=== PATIENT | male | born 1975 | race Caucasian/White ===

== ENCOUNTER 2024-12-10 21:49 | Observation (INO) | payer OTHER ==
--- NOTE | 2024-12-10 22:42 | ERPHSYRPT ---
- History of Present Illness Time Seen by Provider: 12/10/24 22:39 Source: patient Exam Limitations: no limitations Patient Subjective Stated Complaint: pt reports a 6 week history of ER and PCP visits regarding initial hypertension and nausea, low back pain, dizziness upon standing/position changes, states that he was started on olmesartan 11/18/24 to manage his blood pressure. pt reports for the last 2 days he has been lightheaded and nauseated. pt states he is scheduled for and EDG and colonoscopy and is supposed to be seeing a chaperone but is awaiting appointment information from his primary. Triage Nursing Assessment: pt is aox3, pupils perrl, pt ambulatory to treatment area, afebrile, resps easy and non labored, radial pulses strong and equal, cap refill < 3 seconds, pt skin pink warm dry. Physician History: 49-year-old male history of hypertension presents to our ED for evaluation of a 6-week history of hypertension nausea low back pain intermittent dizziness with position and blurred vision. For the last 2 days he has been experiencing lightheadedness and nausea. Patient is currently scheduled for an EGD and colonoscopy. No chest pain or shortness of breath. Patient voices no other complaints or concerns at this time. Portions of this note were created with voice recognition technology. There may be grammatical, spelling, punctuation or sound alike errors Timing/Duration: today Severity: moderate Modifying Factors: Improves With: nothing Associated Symptoms: denies symptoms Allergies/Adverse Reactions: cefaclor [From Ceclor] Allergy (Verified 12/10/24 22:14) Rash Penicillins Allergy (Verified 12/10/24 22:14) Rash Home Medications: ALPRAZolam 0.25 MG [xanAX 0.25 MG] 0.5 mg PO BIDPRN PRN 12/10/24 [History] Desvenlafaxine Succinate [Desvenlafaxine Succinate ER] 100 mg PO DAILY 12/10/24 [History] Olmesartan Medoxomil 5 mg PO DAILY 12/10/24 [History] Pantoprazole 20 mg [Protonix 20MG Tablet] 40 mg PO DAILY 12/10/24 [History] Sildenafil Citrate 25 mg PO DAILY 12/10/24 [History] Trazodone HCl 50 mg [Desyrel 50 mg] 150 mg PO DAILY 12/10/24 [History] Hx Tetanus, Diphtheria Vaccination/Date Given: Yes Hx Influenza Vaccination/Date Given: No Hx Pneumococcal Vaccination/Date Given: No Immunizations Up to Date: Yes Travel Risk - International Travel Have you traveled outside of the country in past 3 weeks: No - Emerging Infectious Disease Are you exhibiting symptoms associated with any current EIDs: No - Review of Systems All Other Systems: Reviewed and Negative - Past Medical History Pertinent Past Medical History: Yes Cardiac History: Hypertension Respiratory History: Asthma GI Medical History: GERD Psycho-Social History: Anxiety, Depression - Past Surgical History Past Surgical History: Yes Musculoskeletal: Orthopedic Surgery - Social History Smoking Status: Never smoker Exposure to second hand smoke: No Drug Use: none - Social Determinants of Health Will the patient participate in the screening: Yes Do you worry about a steady place to live?: No Do you have any problems with any of the following?: No known problems In the past 12 months,have you had to go without utilities?: No Transportation Issues: No Has anyone in your support network made you feel unsafe?: No Have you or anyone in your house had to go w/o enough food: No - Nursing Vital Signs Nursing Vital Signs: Initial Vital Signs Temperature 98.7 F 12/10/24 21:54 Pulse Rate 88 12/10/24 21:54 Respiratory Rate 20 12/10/24 21:54 Blood Pressure 119/85 12/10/24 21:54 O2 Sat by Pulse Oximetry 97 12/10/24 21:54 Pain Scale Pain Intensity 7 - Physical Exam General Appearance: no apparent distress, alert Eye Exam: PERRL/EOMI, eyes nml inspection Ears, Nose, Throat Exam: normal ENT inspection, TMs normal, pharynx normal, moist mucous membranes Neck Exam: normal inspection, non-tender, supple, full range of motion Respiratory Exam: normal breath sounds, lungs clear, No respiratory distress Cardiovascular Exam: regular rate/rhythm, normal heart sounds, normal peripheral pulses Gastrointestinal/Abdomen Exam: soft, normal bowel sounds, No tenderness, No mass Back Exam: normal inspection, normal range of motion, No CVA tenderness, No vertebral tenderness Extremity Exam: normal inspection, normal range of motion, pelvis stable Neurologic Exam: alert, oriented x 3, cooperative, normal mood/affect, nml cerebellar function, nml station & gait, sensation nml, No motor deficits Skin Exam: normal color, warm, dry, No rash Lymphatic Exam: No adenopathy SpO2 Interpretation: normal SpO2: 97 O2 Delivery: Room Air - Course Nursing assessment & vital signs reviewed: Yes EKG Interpreted by Me: RATE (73), Sinus Rhythm, Right Kennedy Deviation, NORMAL INTERVALS, NORMAL QRS - CT Exams Head CT Interpretation: Tele-radiologist Report (No acute intracranial abnormality observed) Ordered Tests: Active Orders 24 hr Category Date Time Status Doctor Of Pharmacy STAT Care 12/10/24 22:37 Active EKG-ER Only STAT Care 12/10/24 22:37 Active IV Insertion STAT Care 12/10/24 22:37 Active Orthostatic Vital Signs STAT Care 12/10/24 23:44 Active Pulse Oximetry (ED) STAT Care 12/10/24 22:37 Active HEAD WITHOUT CONTRAST [CT] Stat Exams 12/10/24 22:46 Completed CBC W DIFF Stat Lab 12/10/24 22:57 Completed CMP Stat Lab 12/10/24 22:57 Completed TROPONIN Q4H Lab 12/10/24 22:57 Completed TROPONIN Q4H Lab 12/11/24 02:45 Ordered TROPONIN Q4H Lab 12/11/24 06:45 Ordered UA W/RFX UR CULTURE Stat Lab 12/10/24 22:41 Completed Medication Summary Generic Name Dose Route Start Last Admin Trade Name Freq PRN Reason Stop Dose Admin Lactated Ringer's 1,000 mls @ 1,000 mls/hr 12/11/24 00:33 12/11/24 00:34 Lactated Ringers IV 12/11/24 01:32 1,000 mls/hr .Q1H STA Administration Discontinued Medications Generic Name Dose Route Start Last Admin Trade Name Freq PRN Reason Stop Dose Admin Sodium Chloride 1,000 mls @ 999 mls/hr 12/10/24 22:37 12/10/24 23:51 Sodium Chloride 0.9% 1000 Ml IV 12/10/24 23:37 Infused .Q1H1M STA Infusion Sodium Chloride Confirm 12/10/24 22:51 Sodium Chloride 0.9% 1000 Ml Administered 12/10/24 22:52 Dose 1,000 mls @ ud .ROUTE .STK-MED ONE Lactated Ringer's Confirm 12/11/24 00:33 Lactated Ringers Administered 12/11/24 00:34 Dose 1,000 mls @ ud IV .STK-MED ONE Ketorolac Tromethamine 30 mg 12/11/24 01:10 12/11/24 01:19 Ketorolac Tromethamine 30 Mg/Ml Inj IV 12/11/24 01:11 30 mg STAT ONE Administration Ketorolac Tromethamine Confirm 12/11/24 01:12 Ketorolac Tromethamine 30 Mg/Ml Inj Administered 12/11/24 01:13 Dose 30 mg .ROUTE .STK-MED ONE Prochlorperazine Edisylate 10 mg 12/11/24 01:09 12/11/24 01:18 Prochlorperazine Edisylate 10 Mg/2 Ml Vial IV 12/11/24 01:10 10 mg STAT ONE Administration Prochlorperazine Edisylate Confirm 12/11/24 01:12 Prochlorperazine Edisylate 10 Mg/2 Ml Vial Administered 12/11/24 01:13 Dose 10 mg .ROUTE .K-MED ONE Lab/Rad Data: Laboratory Result Diagrams 12/10/24 22:57 12/10/24 22:57 Laboratory Results 12/10/24 12/10/24 12/10/24 Range/Units 22:57 22:57 22:57 WBC 9.0 (4.23-9.07) x10^3/uL RBC 3.72 L (4.63-6.08) x10^6/uL Hgb 12.2 L (13.7-17.5) g/dL Hct 35.5 L (40.1-51.0) % MCV 95.4 H (79.0-92.2) fL MCH 32.8 H (25.7-32.2) pg MCHC 34.4 (32.3-36.5) g/dL RDW 13.1 (11.6-14.4) % Plt Count 274 (163-337) x10^3/uL MPV 9.4 (9.4-12.4) fL Gran % 52.7 (34.0-67.9) % Immature Gran % (Auto) 0.8 H (0.001-0.429) % Nucleat RBC Rel Count 0.2 (0.00-0.2) % Eos # (Auto) 0.13 (0.04-0.54) x10^3/uL Immature Gran # (Auto) 0.07 H (0.001-0.031) x10^3u/L Absolute Lymphs (auto) 3.25 (1.32-3.57) x10^3/uL Absolute Monos (auto) 0.74 (0.30-0.82) x10^3/uL Absolute Nucleated RBC 0.02 H (0.00-0.012) x10^3u/L Lymphocytes % 36.1 (21.8-53.1) % Monocytes % 8.2 (5.3-12.2) % Eosinophils % 1.4 (0.8-7.0) % Basophils % 0.8 (0.2-1.2) % Absolute Granulocytes 4.75 (1.78-5.38) x10^3/uL Basophils # 0.07 (0.01-0.08) x10^3/uL Sodium 136 (135-145) mmol/L Potassium 3.8 (3.5-5.1) mmol/L Chloride 104 (98-107) mmol/L Carbon Dioxide 21 L (22-30) mmol/L Anion Gap 14.5 (5-15) MEQ/L BUN 10 (9-20) mg/dL Creatinine 1.64 H (0.66-1.25) mg/dL Estimated GFR 51.3 ML/MIN Glucose 93 (74-106) mg/dL Calcium 8.6 (8.4-10.2) mg/dL Total Bilirubin 0.20 (0.2-1.3) mg/dL AST 50 (17-59) U/L ALT 55 H (0-50) U/L Alkaline Phosphatase 47 (38-126) U/L Troponin I < 0.012 (0.000-0.033) ng/mL Serum Total Protein 6.6 (6.3-8.2) g/dL Albumin 4.0 (3.5-5.0) g/dL Urine Color (Yellow) Urine Appearance (Clear) Urine pH (4.6-8.0) Ur Specific [place] (1.005-1.030) Urine Protein (Negative) Urine Glucose (UA) (Negative) mg/dL Urine Ketones (Negative) Urine Blood (Negative) Urine Nitrite (Negative) Urine Bilirubin (Negative) Urine Urobilinogen (0.2) mg/dL Ur Leukocyte Esterase (Negative) U Hyaline Cast (Auto) (0-2) /LPF Urine Microscopic RBC (0-5) /HPF Urine Microscopic WBC (0-5) /HPF Ur Epithelial Cells (None Seen) /HPF Urine Bacteria (None Seen) /HPF Urine Culture Reflexed (NO) 12/10/24 Range/Units 22:41 WBC (4.23-9.07) x10^3/uL RBC (4.63-6.08) x10^6/uL Hgb (13.7-17.5) g/dL Hct (40.1-51.0) % MCV (79.0-92.2) fL MCH (25.7-32.2) pg MCHC (32.3-36.5) g/dL RDW (11.6-14.4) % Plt Count (163-337) x10^3/uL MPV (9.4-12.4) fL Gran % (34.0-67.9) % Immature Gran % (Auto) (0.001-0.429) % Nucleat RBC Rel Count (0.00-0.2) % Eos # (Auto) (0.04-0.54) x10^3/uL Immature Gran # (Auto) (0.001-0.031) x10^3u/L Absolute Lymphs (auto) (1.32-3.57) x10^3/uL Absolute Monos (auto) (0.30-0.82) x10^3/uL Absolute Nucleated RBC (0.00-0.012) x10^3u/L Lymphocytes % (21.8-53.1) % Monocytes % (5.3-12.2) % Eosinophils % (0.8-7.0) % Basophils % (0.2-1.2) % Absolute Granulocytes (1.78-5.38) x10^3/uL Basophils # (0.01-0.08) x10^3/uL Sodium (135-145) mmol/L Potassium (3.5-5.1) mmol/L Chloride (98-107) mmol/L Carbon Dioxide (22-30) mmol/L Anion Gap (5-15) MEQ/L BUN (9-20) mg/dL Creatinine (0.66-1.25) mg/dL Estimated GFR ML/MIN Glucose (74-106) mg/dL Calcium (8.4-10.2) mg/dL Total Bilirubin (0.2-1.3) mg/dL AST (17-59) U/L ALT (0-50) U/L Alkaline Phosphatase (38-126) U/L Troponin I (0.000-0.033) ng/mL Serum Total Protein (6.3-8.2) g/dL Albumin (3.5-5.0) g/dL Urine Color Yellow (Yellow) Urine Appearance Clear (Clear) Urine pH 5.0 (4.6-8.0) Ur Specific [place] <=1.005 (1.005-1.030) Urine Protein Negative (Negative) Urine Glucose (UA) Negative (Negative) mg/dL Urine Ketones Negative (Negative) Urine Blood Negative (Negative) Urine Nitrite Negative (Negative) Urine Bilirubin Negative (Negative) Urine Urobilinogen 0.2 (0.2) mg/dL Ur Leukocyte Esterase Negative (Negative) U Hyaline Cast (Auto) NONE SEEN (0-2) /LPF Urine Microscopic RBC 0-2 (0-5) /HPF Urine Microscopic WBC 0-2 (0-5) /HPF Ur Epithelial Cells None Seen (None Seen) /HPF Urine Bacteria None Seen (None Seen) /HPF Urine Culture Reflexed NO (NO) - Progress Progress: improved Progress Note: I reviewed the CT abdomen pelvis performed at [facility] on 11/17/2024. No acute intra-abdominal or pelvic process observed. I also reviewed the CT lumbar spine performed at [facility] also on 11/17/2024. Mild spondylosis of the lumbar spine observed. No acute pathology observed. 12/11/24 00:35 History obtained from patient and significant other who are at the bedside. Differential diagnoses include cardiac dysrhythmia, orthostatic, vasovagal 49-year-old male history of hypertension presents to our ED for evaluation of a 6-week history of hypertension nausea low back pain intermittent dizziness with position. For the last 2 days he has been experiencing lightheadedness and nausea 12/11/24 00:38 I consulted with neurology at approximately 12:45 AM. They advised hospitalization for a near syncopal workup observation with cardiac dysrhythmia and MRI brain with and without contrast. Plan of care discussed with patient. He agrees to admission at [facility] for further evaluation and treatment. Complexity of problems addressed is moderate acute complicated. No critical care time. Complexity of data reviewed and analyzed as extensive. Test ordered test reviewed results analyzed and correlated clinically with history and physical exam. Risk of complication and or risk of morbidity/mortality of patient management is high. Patient requires hospitalization for further evaluation and treatment. Vital stable. Time spent to admit patient is approximately 20 minutes. Plan of care established for shared decision making. No social determinants of health present to impede follow-up. Portions of this note were created with voice recognition technology. There may be grammatical, spelling, punctuation or sound alike errors 12/11/24 00:52 Case discussed with hospitalist Dr. Cali admission to observation at proximately 1:20 AM 12/11/24 01:20 Patient complained of a headache. He received Compazine and Toradol 12/11/24 01:24 Counseled pt/family regarding: lab results, diagnosis, rad results - Departure Departure Disposition: Observation Clinical Impression: Acute renal injury, Near syncope, Blurred vision, Headache Condition: Stable Critical Care Time: No Referrals: [facility] OGLES[facility] [NON-STAFF PHY W/O PRIVILEGES, UNKNOWN] - Follow up/PCP as directed
[2024-12-10 23:00] LABS: Glucose, Urine Negative (Negative); Protein,Urine Dip Negative (Negative); RBC 0-2 /HPF (0-5); WBC 0-2 /HPF (0-5)
[2024-12-10 23:01] LABS: BASOPHIL % 0.8 % (0.2-1.2); Basophil (Absolute #) 0.07 x10^3/uL (0.01-0.08); Eosinophil (Absolute #) 0.13 x10^3/uL (0.04-0.54); Hematocrit 35.5 % (40.1-51.0); Hemoglobin 12.2 g/dL (13.7-17.5); IMMATURE GRAN # 0.07 x10^3u/L (0.001-0.031); IMMATURE GRAN % 0.8 % (0.001-0.429); Lymphocyte (Absolute #) 3.25 x10^3/uL (1.32-3.57); Mean Corpuscular Hemoglobin 32.8 pg (25.7-32.2); Mean Corpuscular Hgb Concent. 34.4 g/dL (32.3-36.5); Monocyte (Absolute #) 0.74 x10^3/uL (0.30-0.82); NUCLEATED RBC # 0.02 x10^3u/L (0.00-0.012); NUCLEATED RBC % 0.2 % (0.00-0.2); Platelet Count 274 x10^3/uL (163-337); Red Blood Count 3.72 x10^6/uL (4.63-6.08); White Blood Count 9.0 x10^3/uL (4.23-9.07)
[2024-12-10 23:16] LABS: Calcium 8.6 mg/dL (8.4-10.2); Carbon Dioxide 21.0 mmol/L (22-30); Creatinine 1 1.64 mg/dL (0.66-1.25); EST GLOMERULAR FILTRATION RATE 51.3 ML/MIN; Glucose 93.0 mg/dL (74-106); Potassium 3.8 mmol/L (3.5-5.1); SGOT/AST 50.0 U/L (17-59); SGPT/ALT 55.0 U/L (0-50); Total Protein 6.6 g/dL (6.3-8.2)
--- NOTE | 2024-12-11 00:05 | XRAY ---
CLINICAL HISTORY: Lightheadedness COMPARISON: None. TECHNIQUE: Axial non-contrast CT scan of the brain was performed from the skull base to the high parietal region with multiplanar reconstructions. One of the following dose reduction techniques was utilized for this exam: automated exposure control, adjustment of the mA and/or kV according to patient size, or use of iterative reconstruction. FINDINGS: Brain Parenchyma: Normal attenuation of the cerebral hemispheres, cerebellum, and brainstem. There is no evidence of acute infarct, hemorrhage, or mass effect. No abnormal areas of hypoattenuation or hyperattenuation are identified. Ventricular System: The ventricles are normal in size and configuration. There is no evidence of hydrocephalus or ventricular enlargement. Subarachnoid Spaces: Normal sulci and cisterns are seen. There is no evidence of subarachnoid hemorrhage or extra-axial fluid collections. Cerebellum and Brainstem: No masses, lesions, or areas of abnormal density are present. Orbits: Normal appearance of the globes, optic nerves, and extraocular muscles. There is no evidence of orbital masses or abnormal density. Sinuses: The paranasal sinuses are clear. No evidence of sinusitis or mucosal thickening is seen. Mastoid Air Cells: The mastoid air cells are clear. No evidence of mastoiditis is present. Skull: Normal skull morphology is observed. IMPRESSION: No acute intracranial abnormality is identified. Electronically Signed by: Anthony Cheek MD. (12/11/2024 00:04:08 EDT)
[2024-12-11] MEDS ORDERED: Lactated Ringers 1,000 ML IV ONE (00:33)
[2024-12-11] MEDS: Lactated Ringers 1,000 ML IV STA (00:34)
--- NOTE | 2024-12-11 00:50 | PCM.CONS ---
History of Present Illness - Neuro Consultation ED Arrival Date & Time: 12/10/24 21:49 Providers: Attending Provider: ED Provider: RUTH ANN NOVA Consulting Provider: LIDYA PEREZ MD cc:: The requesting physician will be sent a copy of the consult. - History of Present Illness HPI: Physician Signature This document was electronically signed by: Lidya Perez MD 12/11/2024 12:47 AM Consult Cover Page [facility] - Teleneurology Consult Note Call Back Number: [phone] Date and Time of Report: 12/11/2024 12:47 AM ET Consult Information Client Facility: [facility] Facility Consult ID: [id number] Facility Time Zone: ET Date and Time of Request: 12-10-2024 11:47 PM ET Requesting Clinician: DR. RUTH ANN NOVA Patient Name: MELISSA SWENSON Date of : 1975 Teleneurology Commercial Account Officer: Lidya Perez MD Miscellaneous Patient identity was confirmed at the beginning of the consult with the patient/family/staff using two personal identifiers: Patient name and This visit was performed using real-time audio and video connection between my location and the patient's location with the assistance of a surrogate at the patient's location. Verbal consent was obtained from the patient/family to perform this visit using synchronous telemedicine technology. Any questions regarding the telemedicine interaction were answered. If written or oral consent could not be obtained due to the patient's condition, consent was assumed given the emergent nature of the consultation. I have obtained verbal consent from patient/surrogate for two-way audio/visual encounter: Yes Reason for Consult Reason for Consult: Other Emergency Assessment and Recommendations Case discussed with: Dr. Nova Assessment: Mr. Swenson is a 49 yo M w/pmhx of HTN, asthma, anxiety, depression, CKD who presents for ongoing light headedness, recurrent episodes of palpitations, labile BP, SOB and blurry vision. He endorses that his light headedness has been ongoing since starting benicar a few weeks ago and he experiences blurry vision at times where he feels like he is going to pass out with no neuro deficits in between. He also endorses gradual ongoing headache that has been occurring over the last few weeks. His symptoms are most concerning for pre syncope with c/f cardiac etiology given recurrent episodes of labile BP, palpitations, SOB. Recommendations: Recommend presyncope/syncope evaluation including a cardiac evaluation for any possible underlying arrhythmias, etc. Obtain orthostatics MRIB w/w/o contrast Recommend comprehensive metabolic and infectious workup TTE w/bubble Rest of care per primary team Diagnosis: light headedness ICD-10 Code ICD-10 Code (Primary): R42 : Dizziness and giddiness ICD-10 Code: R11.2 : Nausea with vomiting, unspecified ICD-10 Code: R26.89 : Other abnormalities of gait and mobility Clinical Evaluation Chief Complaint: dizziness Patient Location and Admission Status: ED- Patient is not admitted Family Members and Medical Staff Present: RN Neurologist evaluation date: 12/11/2024 Neurologist call time: 1204 Neurologist on-cart time: 1207 Neurologist evaluation with patient time: 1207 Mr. Swenson is a 49 yo M w/pmhx of HTN, asthma, anxiety, depression, CKD who presents for recurrent light headedness, nausea with emesis for the past few weeks. He also gets very rapid heart rate with elevated BP. He reports that for the past 2 days, he was getting very light headed and he noticed that his BP was 74/52. He describes that if he does not hold onto the wall, he will fall. He denies any room spinning sensation. He reports having some blurry vision that only occurs when he feels like he is going to pass out. He reports that he will have many episodes of feeling like his heart is racing especially during these episodes with associated SOB. He reports that he was recently diagnosed with hypertension and he was started on benicar about 3 weeks ago. He reports that he has been taking his antiHTN medication up until today. He denies any speech changes, facial droop, unilateral weakness. He reports that he has a headache that is located bitemporally and has had a headache on and off for the last few weeks. He rates it 7/10 currently. He denies any photophobia or phonophobia. He reports that he has gone to about 5 EDs in the last 6 weeks and he was not satisfied with what he was told as no one gave him any explanation of what was going on. He was referred to cardiology but he was not able to get an appointment. He is scheduled for a colonoscope and endoscopy for his ongoing nausea with OP GI. he reports he has chronic neck pain but its not unusual for him or different from his baseline. he reports that he has been having really bad lower back pain that is located over his kidneys that has been going for about 6 weeks. no loss of bowel or bladder, sensory deficits. 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 He reports that he has been suffering from night sweats that have been ongoing for the past few weeks. He did have a CT L-spine on 11/17 at [facility] with abdominal imaging with no acute findings as per Dr. Nova. As per Dr. Nova, his EKG is normal with NSR, trop neg. Medical History Other Medical History: as noted in HPI Other Past Procedures: c3-c4 fusion Social History Alcohol Use: None Illicit Drug Use: None Tobacco Use: Current Other Social History : vapes Family History Pertinent Family History: Not Relevant to Current Presentation Allergies Allergies: Penicillin Medications Anti-Coagulants: None Anti-Platelets: None Other Medications: benicar prystiq trazadone xanax 1 mg bid Vital Signs Temperature: Afebrile Blood Pressure (mmHg): 104/55 Heart Rate (bpm): 72 Respiration Rate (/min): 19 O2 Sat (%): 98 POC Glucose(mg/dL): 100 Date and Time: 12/11/2024 12:19:14 AM ET Review of Systems Review of Systems: Constitutional: Denies fevers, chills, weight loss ENT: Denies tinnitus Ophthalmology: +blurred vision Respiratory: Denies SOB, cough Cardiovascular: Denies chest pains, palpitations GI:+vomiting : Denies hematuria Hematology: Denies excessive bleeding Musculoskeletal: Denies back pain, neck pain, joint pain Neurology: +headache Mental Health: Denies anxiety Dermatology: Denies rash NIH Stroke Scale NIH Stroke Scale Score: 0 1. Level of Consciousness: 0 : alert; keenly responsive. 1a. LOC Questions: 0 : Answers both questions correctly. 1b. LOC Commands: 0 : Performs both tasks correctly. 2. Best Gaze: 0 : Normal. 3. Visual: 0 : No visual loss. 4. Facial Palsy: 0 : Normal symmetrical movements. 5a. Motor Left Arm: 0 : No drift; limb holds 90 (or 45) degrees for full 10 seconds. 5b. Motor Right Arm : 0 : No drift; limb holds 90 (or 45) degrees for full 10 seconds. 6a. Motor Left Le : No drift; leg holds 30-degree position for full 5 seconds. 6b. Motor Right Le : No drift; leg holds 30-degree position for full 5 seconds. 7. Limb Ataxia: 0 : Absent. 8. Sensory: 0 : Normal; no sensory loss. 9. Best Language: 0 : No aphasia; normal. 10. Dysarthria: 0 : Normal. 11. Extinction and inattention (formerly Neglect) : 0 : No abnormality. NIH Stroke Scale Entry Time: 12/11/2024 12:34:00 AM ET Exam Exam: Gen: Well developed, well nourished. No acute distress. MS: Awake and oriented x3. Alert. Fund of knowledge, memory, and language at baseline. CV: Regular rate. No edema. recovery room rn: Pupils reactive and equal., EOMI. Visual alvarenga are full. +blink. Unable to visualize fundi through telemedicine. Sensation intact. Face is symmetric. Hearing intact to voice. Trapezii strong. Tongue midline. Motor: Antigravity in all 4 extremities. Normal bulk. Sens: Intact to light touch in all 4 extremities. MSR: Unable to assess through telemedicine, no clonus noted. Mvmt: No tremors noted. FTN intact or HTS Gait: Deferred. Clinician assisting with exam: RN Labs and Imaging I reviewed labs: Yes I reviewed diagnostic reports such as radiological imaging, echocardiogram, and EEG reports: Yes I reviewed diagnostics such as radiological images and electroencephalograms: Yes Labs and Imaging Comments: hgb 12.2 , plt 274, Na 136, Cr 1.64 CTH - no acute abnormalities Attestation Interaction Mode: Video & Phone Time of Phone Call : 12-11-2024 12:38 AM ET Time of Video Call : 12-11-2024 12:08 AM ET [facility] Timer Summary ED Arrival Date and Time: 12-10-2024 09:49 PM ET Date and Time of Request: 12-10-2024 11:47 PM ET Review of Systems - Review of Systems Review of Systems (Narrative): Pertinent positive and negative findings as per HPI. All other systems negative. - Past Medical History Past Medical History: Yes Cardiac History: Hypertension Respiratory History: Asthma GI Medical History: GERD Pyscho-Social History: Anxiety, Depression - Past Surgical History Past Surgical History: Yes Musculskeletal Surgical Hx: Orthopedic Surgery Other Surgical History: C3-C4 fusion - Social History Smoking Status: Never smoker Exposure to second hand smoke: No Alcohol: None Drug Use: none - Social Determinants of Health Will the patient participate in the screening: Yes Do you worry about a steady place to live?: No Do you have any problems with any of the following?: No known problems In the past 12 months,have you had to go without utilities?: No Have you or anyone in your house had to go without enough: No Transportation Issues: No Has anyone in your support network made you feel unsafe?: No Physical Exam - Vital Signs Vital Signs: Vital Signs - 24 hr 12/10/24 12/10/24 12/10/24 21:54 22:00 22:30 Temperature 98.7 F Pulse Rate 88 76 Respiratory 20 18 Rate Blood Pressure 99/70 106/64 Blood Pressure 119/85 [Left Arm] O2 Sat by Pulse 97 97 98 Oximetry 12/10/24 12/10/24 12/10/24 22:50 23:00 23:20 Temperature Pulse Rate 80 76 Respiratory 13 18 Rate Blood Pressure 86/57 101/58 Blood Pressure [Left Arm] O2 Sat by Pulse 97 96 99 Oximetry 12/10/24 12/10/24 12/10/24 23:30 23:39 23:40 Temperature Pulse Rate 78 83 94 H Respiratory 12 23 19 Rate Blood Pressure 91/56 97/61 82/67 Blood Pressure [Left Arm] O2 Sat by Pulse 96 97 98 Oximetry 12/10/24 12/11/24 12/11/24 23:41 00:00 00:38 Temperature Pulse Rate 73 76 Respiratory 18 22 Rate Blood Pressure 97/70 104/55 Blood Pressure [Left Arm] O2 Sat by Pulse 97 97 97 Oximetry Results - Labs Lab/Micro Results: Lab Results-Last 24 Hours 12/10/24 12/10/24 12/10/24 Range/Units 22:41 22:57 22:57 WBC 9.0 (4.23-9.07) x10^3/uL RBC 3.72 L (4.63-6.08) x10^6/uL Hgb 12.2 L (13.7-17.5) g/dL Hct 35.5 L (40.1-51.0) % MCV 95.4 H (79.0-92.2) fL MCH 32.8 H (25.7-32.2) pg MCHC 34.4 (32.3-36.5) g/dL RDW 13.1 (11.6-14.4) % Plt Count 274 (163-337) x10^3/uL MPV 9.4 (9.4-12.4) fL Gran % 52.7 (34.0-67.9) % Immature Gran % (Auto) 0.8 H (0.001-0.429) % Nucleat RBC Rel Count 0.2 (0.00-0.2) % Eos # (Auto) 0.13 (0.04-0.54) x10^3/uL Immature Gran # (Auto) 0.07 H (0.001-0.031) x10^3u/L Absolute Lymphs (auto) 3.25 (1.32-3.57) x10^3/uL Absolute Monos (auto) 0.74 (0.30-0.82) x10^3/uL Absolute Nucleated RBC 0.02 H (0.00-0.012) x10^3u/L Lymphocytes % 36.1 (21.8-53.1) % Monocytes % 8.2 (5.3-12.2) % Eosinophils % 1.4 (0.8-7.0) % Basophils % 0.8 (0.2-1.2) % Absolute Granulocytes 4.75 (1.78-5.38) x10^3/uL Basophils # 0.07 (0.01-0.08) x10^3/uL Sodium 136 (135-145) mmol/L Potassium 3.8 (3.5-5.1) mmol/L Chloride 104 (98-107) mmol/L Carbon Dioxide 21 L (22-30) mmol/L Anion Gap 14.5 (5-15) MEQ/L BUN 10 (9-20) mg/dL Creatinine 1.64 H (0.66-1.25) mg/dL Estimated GFR 51.3 ML/MIN Glucose 93 (74-106) mg/dL Calcium 8.6 (8.4-10.2) mg/dL Total Bilirubin 0.20 (0.2-1.3) mg/dL AST 50 (17-59) U/L ALT 55 H (0-50) U/L Alkaline Phosphatase 47 (38-126) U/L Troponin I (0.000-0.033) ng/mL Serum Total Protein 6.6 (6.3-8.2) g/dL Albumin 4.0 (3.5-5.0) g/dL Urine Color Yellow (Yellow) Urine Appearance Clear (Clear) Urine pH 5.0 (4.6-8.0) Ur Specific Benton <=1.005 (1.005-1.030) Urine Protein Negative (Negative) Urine Glucose (UA) Negative (Negative) mg/dL Urine Ketones Negative (Negative) Urine Blood Negative (Negative) Urine Nitrite Negative (Negative) Urine Bilirubin Negative (Negative) Urine Urobilinogen 0.2 (0.2) mg/dL Ur Leukocyte Esterase Negative (Negative) U Hyaline Cast (Auto) NONE SEEN (0-2) /LPF Urine Microscopic RBC 0-2 (0-5) /HPF Urine Microscopic WBC 0-2 (0-5) /HPF Ur Epithelial Cells None Seen (None Seen) /HPF Urine Bacteria None Seen (None Seen) /HPF Urine Culture Reflexed NO (NO) 12/10/24 Range/Units 22:57 WBC (4.23-9.07) x10^3/uL RBC (4.63-6.08) x10^6/uL Hgb (13.7-17.5) g/dL Hct (40.1-51.0) % MCV (79.0-92.2) fL MCH (25.7-32.2) pg MCHC (32.3-36.5) g/dL RDW (11.6-14.4) % Plt Count (163-337) x10^3/uL MPV (9.4-12.4) fL Gran % (34.0-67.9) % Immature Gran % (Auto) (0.001-0.429) % Nucleat RBC Rel Count (0.00-0.2) % Eos # (Auto) (0.04-0.54) x10^3/uL Immature Gran # (Auto) (0.001-0.031) x10^3u/L Absolute Lymphs (auto) (1.32-3.57) x10^3/uL Absolute Monos (auto) (0.30-0.82) x10^3/uL Absolute Nucleated RBC (0.00-0.012) x10^3u/L Lymphocytes % (21.8-53.1) % Monocytes % (5.3-12.2) % Eosinophils % (0.8-7.0) % Basophils % (0.2-1.2) % Absolute Granulocytes (1.78-5.38) x10^3/uL Basophils # (0.01-0.08) x10^3/uL Sodium (135-145) mmol/L Potassium (3.5-5.1) mmol/L Chloride (98-107) mmol/L Carbon Dioxide (22-30) mmol/L Anion Gap (5-15) MEQ/L BUN (9-20) mg/dL Creatinine (0.66-1.25) mg/dL Estimated GFR ML/MIN Glucose (74-106) mg/dL Calcium (8.4-10.2) mg/dL Total Bilirubin (0.2-1.3) mg/dL AST (17-59) U/L ALT (0-50) U/L Alkaline Phosphatase (38-126) U/L Troponin I < 0.012 (0.000-0.033) ng/mL Serum Total Protein (6.3-8.2) g/dL Albumin (3.5-5.0) g/dL Urine Color (Yellow) Urine Appearance (Clear) Urine pH (4.6-8.0) Ur Specific Benton (1.005-1.030) Urine Protein (Negative) Urine Glucose (UA) (Negative) mg/dL Urine Ketones (Negative) Urine Blood (Negative) Urine Nitrite (Negative) Urine Bilirubin (Negative) Urine Urobilinogen (0.2) mg/dL Ur Leukocyte Esterase (Negative) U Hyaline Cast (Auto) (0-2) /LPF Urine Microscopic RBC (0-5) /HPF Urine Microscopic WBC (0-5) /HPF Ur Epithelial Cells (None Seen) /HPF Urine Bacteria (None Seen) /HPF Urine Culture Reflexed (NO) - Radiology Orders Radiology Orders: Radiology Procedures Category Date Time Status HEAD WITHOUT CONTRAST [CT] Stat Exams 12/10/24 22:46 Completed Impressions & Recommendations - ED Arrival Time ED Arrival Date & Time: ED Arrival Date and Time 12/10/24 21:49 Last known well time: - NIHSS IV Thrombolysis Standard of Care: IV thrombolysis as a standard of care in acute stroke discussed with RUTH ANN NOVA. Risk, benefits, and options of IV thrombolytic therapy for acute ischemic stroke were discussed with the patient/family MELISSA SWENSON. We discussed that use of IV tenecteplase is in line with national stroke guidelines. We discussed that risks of IV thrombolytic use include intracranial hemorrhage, other fatal bleeding risks, and angioedema. Alternatives of treatment, including not proceeding with thrombolytic therapy were discussed. - Recommendations Recommendations: -Neuro checks, NIHSS, vital signs monitoring as per post tenecteplase protocol -Repeat non contrast head CT or noncontrast MRI brain 24 hours after IV thrombolyltic administration. -Obtain STAT non contrast head CT if there are new neurological deficits, worsening of current deficits, or with complaint of severe headache. Notify Neurology YASMANI of changes in neurological exam. -Nicardipine gtt as needed to maintain BP< 180/105 x 24hr post tenecteplase administration. -Monitor for angioedema -SCD's for DVT prophylaxis. Work up: -Basic labs (CBC, BMP, TSH+T4) if not done already. -INR,PTT if not done already -Fasting Lipid Panel and Hgb A1c -Transthroacic echocardiogram [with bubble study] -EKG + Telemetry- monitor for A-FIB Secondary Stroke Prevention -Hold off on antiplatelet therapy x 24 hr post IV thrombolytic therapy Decision to initiate antiplatelet therapy, or anticoagulation if needed, will be based on repeat imaging at 24 hour post thrombolytic administration. -If not medical contraindication, start high intensity statin. Eg. Atrovastatin 80 mg daily Risk Factor Management -HTN control: BP <180/105 for first 24 hr post tenecteplase -If diabetic, optimize glucose control: intermediate goal HgA1c <7 -HLD control: Long-term goal LDL <70. High intensity statin recommended. Moderate intensity statin in patients > 75 years. -Smoking Alcohol Use Drug use cessation counseling Stroke Rehabilitation: -Physical therapy, occupational therapy, speech therapy consults -Social work and case management consults for help with discharge needs. Impression and recommendation were discussed with Dr. RUTH ANN NOVA Thank you for allowing us to participate in this patient's care. Please call [facility] with questions, concerns, or change in patient's neurological status. This consult was performed via secure telemedicine audio/visual platform with [ ] RN assisting at bedside. Patient identity verified and consent obtained. TIQ recieved at [ ] Neuro Cart Time: Delays in Patient Encounter: Assessment & Plan - Encounter Encounter: "The entirety of this encounter was performed via Telemedicine using audio and visual "
[2024-12-11] MEDS ORDERED: TORAdol 30 mg Injection ONE (01:12)
[2024-12-11] MEDS ORDERED: Compazine 10 MG/2 ML ONE (01:12)
[2024-12-11] MEDS: Compazine 10 MG/2 ML IV ONE (01:18)
[2024-12-11] MEDS: TORAdol 30 mg Injection IV ONE (01:19)
[2024-12-11] MEDS ORDERED: DESYREL 50 MG ONE (02:30)
[2024-12-11] MEDS ORDERED: PRISTIQ ER PO ONE (02:30)
[2024-12-11] MEDS: DESYREL 50 MG PO SCH (02:31)
[2024-12-11] MEDS: PRISTIQ ER PO SCH (02:32)
[2024-12-11 06:33] LABS: BASOPHIL % 0.8 % (0.2-1.2); Basophil (Absolute #) 0.06 x10^3/uL (0.01-0.08); Eosinophil (Absolute #) 0.15 x10^3/uL (0.04-0.54); Hematocrit 34.5 % (40.1-51.0); Hemoglobin 11.7 g/dL (13.7-17.5); IMMATURE GRAN # 0.07 x10^3u/L (0.001-0.031); IMMATURE GRAN % 0.9 % (0.001-0.429); Lymphocyte (Absolute #) 3.28 x10^3/uL (1.32-3.57); Mean Corpuscular Hemoglobin 33.1 pg (25.7-32.2); Mean Corpuscular Hgb Concent. 33.9 g/dL (32.3-36.5); Monocyte (Absolute #) 0.77 x10^3/uL (0.30-0.82); NUCLEATED RBC # 0.00 x10^3u/L (0.00-0.012); NUCLEATED RBC % 0.0 % (0.00-0.2); Platelet Count 217 x10^3/uL (163-337); Red Blood Count 3.54 x10^6/uL (4.63-6.08); White Blood Count 7.8 x10^3/uL (4.23-9.07)
[2024-12-11 06:48] LABS: Calcium 8.1 mg/dL (8.4-10.2); Carbon Dioxide 23 mmol/L (22-30); Creatinine 1 1.42 mg/dL (0.66-1.25); EST GLOMERULAR FILTRATION RATE 61.0 ML/MIN; Glucose 88 mg/dL (74-106); Potassium 4.0 mmol/L (3.5-5.1); SGOT/AST 49 U/L (17-59); SGPT/ALT 53 U/L (0-50); Total Protein 6.2 g/dL (6.3-8.2)
[2024-12-11] MEDS ORDERED: xanAX 0.25 MG PO PRN (07:11)
--- NOTE | 2024-12-11 07:27 | PCM.HP ---
History of Present Illness - Chief Complaint Chief Complaint: Near syncope blurred vision nausea History of Present Illness: Pre-syncope / near loss of consciousness(acute, ongoing assessment) Plan is for evaluation of both cardiac and neurologic etiology. Echocardiogram with agitated saline study is pending. Continuous telemetry to monitor for arrhythmia. Thyroid function testing is pending. Brain MRI is pending. Hypertension (chronic, controlled) Continue current management. Gastric Reflux (chronic, uncontrolled) Pending EGD and colonoscopy outpatient Continue pantoprazole 40 mg qday. Anxiety (chronic, controlled) Continue alprazolam 0.25 mg BID PRN. Subjective Mr. Degroot is a 49-year-old gentleman who presented to the emergency room with a primary complaint of dizziness. He describes the sensation as lightheadedness that is not related to changes in position. Associated symptoms include intermittent bilateral blurry vision. He denies any motor or muscle weakness, episodes of loss of consciousness, or changes in his speech. He continues to experience lightheadedness and some nausea without vomiting. Home medications Olmesartan 5 mg qday Sildenafil 25 mg PRN Physical examination Vital Signs Blood pressure: 119/85 mmHg Heart rate: 88 bpm Respiratory rate: 20 breaths/min Oxygen saturation: 97% on room air Temperature: 98.7 F Height: 6'3" Weight: 224 lbs BMI: 28.1 Neurological Alert and oriented. Thought content and judgment are normal. Cardiovascular Normal S1 and S2 heart sounds. No murmurs, gallops, or rubs. Jugular venous pressure is not elevated. No hepatojugular reflux. No carotid bruits. No peripheral edema. Pulses are normal in the upper and lower limbs. Respiratory Lungs are clear to auscultation bilaterally. Abdominal The abdomen is soft, non-tender, and non-distended. Musculoskeletal No gross deformities or tenderness. Power and sensation are intact. Lab and Studies Reviewed Complete Blood Count (12/11/2024): Hemoglobin 12.2 g/dL, Hematocrit 35%, White Blood Cell Count 10.9 x10^9/L, Platelets 274 x10^9/L. Independently reviewed and interpreted by me. Basic Metabolic Panel (12/02/2024): Sodium 136 mmol/L, Potassium 3.8 mmol/L, Chloride 104 mmol/L, Bicarbonate 21 mmol/L, BUN 10 mg/dL, Creatinine 1.6 mg/dL. Independently reviewed and interpreted by me. Notes reviewed Neurology consult note (12/11/2024): Noted recurrent episodes of palpitations. MDM summary 1. Number and Complexity of Problems Addressed (CoPA): High Complexity: The patient presents with an undiagnosed new problem (dizziness) with an uncertain prognosis. The differential diagnoses include potentially life-threatening cardiac and neurologic etiologies. This requires a comprehensive workup to rule out serious conditions. He also has multiple chronic illnesses (hypertension, GERD, anxiety) that require ongoing management. 2. Amount and/or Complexity of Data to be Reviewed and Analyzed (Data): Extensive: The management plan involves ordering multiple complex diagnostic tests, including an echocardiogram, continuous telemetry, thyroid function tests, and a brain MRI. Additionally, a neurology consult note and multiple lab panels were reviewed and independently interpreted to inform the clinical decision-making process. 3. Risk of Complications, Morbidity, and/or Mortality (Risk): High Risk: The decision-making process involves consideration of hospi talization and escalation of care due to the need to evaluate for serious underlying conditions such as arrhythmia or a neurologic event, which pose a significant threat to life or bodily function. The planned investigations, such as a brain MRI, contribute to the high-risk assessment. - Review of Systems Constitutional: No Symptoms, No Fever, No Chills Eyes: No Symptoms Respiratory: No Cough, No Short Of Breath Cardiac: Palpitations, No Chest Pain, No Syncope Abdominal/Gastrointestinal: Nausea, No Diarrhea Genitourinary Symptoms: No Dysuria Musculoskeletal: No Symptoms Skin: No Symptoms Neurological: Dizziness Psychological: No Symptoms Hematologic/Lymphatic: No Symptoms Medications & Allergies Home Medications: Home Medication List ALPRAZolam 0.25 MG [xanAX 0.25 MG] 0.5 mg PO BIDPRN PRN 12/10/24 [History Confirmed 12/11/24] Desvenlafaxine Succinate [Desvenlafaxine Succinate ER] 100 mg PO QHS 12/10/24 [History Confirmed 12/11/24] Olmesartan Medoxomil 5 mg PO QHS 12/10/24 [History Confirmed 12/11/24] Pantoprazole 20 mg [Protonix 20MG Tablet] 40 mg PO DAILY 12/10/24 [History Confirmed 12/11/24] Sildenafil Citrate 25 mg PO DAILY PRN 12/10/24 [History Confirmed 12/11/24] Trazodone HCl 50 mg [Desyrel 50 mg] 150 mg PO QHS 12/10/24 [History Confirmed 12/11/24] Allergies/Adverse Reactions: Allergies Allergy/AdvReac Type Severity Reaction Status Date / Time cefaclor [From [facility]] Allergy Rash Verified 12/11/24 01:57 Penicillins Allergy Rash Verified 12/11/24 01:57 - Past Medical History Past Medical History: Yes Neurological History: No Pertinent History ENT History: No Pertinent History Cardiac History: Hypertension Respiratory History: Asthma Endocrine Medical History: No Pertinent History Musculoskelatal History: No Pertinent History GI Medical History: GERD History: No Pertinent History Pyscho-Social History: Anxiety, Depression Male Reproductive Disorders: No Pertinent History - Past Surgical History Past Surgical History: Yes Neuro Surgical History: No Pertinent History Cardiac History: No Pertinent History Respiratory Surgery: No Pertinent History GI Surgical History: No Pertinent History Genitourinary Surgical Hx: No Pertinent History Musculskeletal Surgical Hx: Orthopedic Surgery Male Surgical History: No Pertinent History Other Surgical History: C3-C4 fusion, 2 left ulna nerve in elbow, 2 left wrist, right rotator cuff, right miniscus, 2 left and 2 right ankle surgeries. - Social History Smoking Status: Current every day smoker Exposure to second hand smoke: No Alcohol: None Drug Use: none - Social Determinants of Health Will the patient participate in the screening: Yes Do you worry about a steady place to live?: No Do you have any problems with any of the following?: No known problems In the past 12 months,have you had to go without utilities?: No Have you or anyone in your house had to go without enough: No Transportation Issues: No Has anyone in your support network made you feel unsafe?: No Does the patient want assistance with any of the above?: No - Physical Exam Vital Signs: Vital Signs - 24 hr Temp Pulse Resp BP BP Pulse Ox 12/11/24 04:00 98.3 F 66 17 116/67 94 L 12/11/24 02:01 98.3 F 66 17 116/67 94 L 12/11/24 01:47 74 95 12/11/24 01:30 74 16 113/66 95 12/11/24 01:24 97 12/11/24 01:00 72 10 L 116/72 95 12/11/24 00:51 71 15 109/92 96 12/11/24 00:30 109/65 99 12/11/24 00:00 76 22 104/55 97 12/10/24 23:41 73 18 97/70 97 12/10/24 23:40 94 H 19 82/67 98 12/10/24 23:39 83 23 97/61 97 12/10/24 23:30 78 12 91/56 96 12/10/24 23:20 76 18 101/58 99 12/10/24 23:00 80 13 86/57 96 12/10/24 22:50 97 12/10/24 22:30 76 18 106/64 98 12/10/24 22:00 99/70 97 12/10/24 21:54 98.7 F 88 20 119/85 97 Results - Labs Lab/Micro Results: Lab Results-Last 24 Hours 12/10/24 12/10/24 12/10/24 Range/Units 22:41 22:57 22:57 WBC 9.0 (4.23-9.07) x10^3/uL RBC 3.72 L (4.63-6.08) x10^6/uL Hgb 12.2 L (13.7-17.5) g/dL Hct 35.5 L (40.1-51.0) % MCV 95.4 H (79.0-92.2) fL MCH 32.8 H (25.7-32.2) pg MCHC 34.4 (32.3-36.5) g/dL RDW 13.1 (11.6-14.4) % Plt Count 274 (163-337) x10^3/uL MPV 9.4 (9.4-12.4) fL Gran % 52.7 (34.0-67.9) % Immature Gran % (Auto) 0.8 H (0.001-0.429) % Nucleat RBC Rel Count 0.2 (0.00-0.2) % Eos # (Auto) 0.13 (0.04-0.54) x10^3/uL Immature Gran # (Auto) 0.07 H (0.001-0.031) x10^3u/L Absolute Lymphs (auto) 3.25 (1.32-3.57) x10^3/uL Absolute Monos (auto) 0.74 (0.30-0.82) x10^3/uL Absolute Nucleated RBC 0.02 H (0.00-0.012) x10^3u/L Lymphocytes % 36.1 (21.8-53.1) % Monocytes % 8.2 (5.3-12.2) % Eosinophils % 1.4 (0.8-7.0) % Basophils % 0.8 (0.2-1.2) % Absolute Granulocytes 4.75 (1.78-5.38) x10^3/uL Basophils # 0.07 (0.01-0.08) x10^3/uL Sodium 136 (135-145) mmol/L Potassium 3.8 (3.5-5.1) mmol/L Chloride 104 (98-107) mmol/L Carbon Dioxide 21 L (22-30) mmol/L Anion Gap 14.5 (5-15) MEQ/L BUN 10 (9-20) mg/dL Creatinine 1.64 H (0.66-1.25) mg/dL Estimated GFR 51.3 ML/MIN Glucose 93 (74-106) mg/dL Calcium 8.6 (8.4-10.2) mg/dL Total Bilirubin 0.20 (0.2-1.3) mg/dL AST 50 (17-59) U/L ALT 55 H (0-50) U/L Alkaline Phosphatase 47 (38-126) U/L Troponin I (0.000-0.033) ng/mL Serum Total Protein 6.6 (6.3-8.2) g/dL Albumin 4.0 (3.5-5.0) g/dL Urine Color Yellow (Yellow) Urine Appearance Clear (Clear) Urine pH 5.0 (4.6-8.0) Ur Specific Driscoll <=1.005 (1.005-1.030) Urine Protein Negative (Negative) Urine Glucose (UA) Negative (Negative) mg/dL Urine Ketones Negative (Negative) Urine Blood Negative (Negative) Urine Nitrite Negative (Negative) Urine Bilirubin Negative (Negative) Urine Urobilinogen 0.2 (0.2) mg/dL Ur Leukocyte Esterase Negative (Negative) U Hyaline Cast (Auto) NONE SEEN (0-2) /LPF Urine Microscopic RBC 0-2 (0-5) /HPF Urine Microscopic WBC 0-2 (0-5) /HPF Ur Epithelial Cells None Seen (None Seen) /HPF Urine Bacteria None Seen (None Seen) /HPF Urine Culture Reflexed NO (NO) 12/10/24 12/11/24 12/11/24 Range/Units 22:57 02:38 06:25 WBC (4.23-9.07) x10^3/uL RBC (4.63-6.08) x10^6/uL Hgb (13.7-17.5) g/dL Hct (40.1-51.0) % MCV (79.0-92.2) fL MCH (25.7-32.2) pg MCHC (32.3-36.5) g/dL RDW (11.6-14.4) % Plt Count (163-337) x10^3/uL MPV (9.4-12.4) fL Gran % (34.0-67.9) % Immature Gran % (Auto) (0.001-0.429) % Nucleat RBC Rel Count (0.00-0.2) % Eos # (Auto) (0.04-0.54) x10^3/uL Immature Gran # (Auto) (0.001-0.031) x10^3u/L Absolute Lymphs (auto) (1.32-3.57) x10^3/uL Absolute Monos (auto) (0.30-0.82) x10^3/uL Absolute Nucleated RBC (0.00-0.012) x10^3u/L Lymphocytes % (21.8-53.1) % Monocytes % (5.3-12.2) % Eosinophils % (0.8-7.0) % Basophils % (0.2-1.2) % Absolute Granulocytes (1.78-5.38) x10^3/uL Basophils # (0.01-0.08) x10^3/uL Sodium (135-145) mmol/L Potassium (3.5-5.1) mmol/L Chloride (98-107) mmol/L Carbon Dioxide (22-30) mmol/L Anion Gap (5-15) MEQ/L BUN (9-20) mg/dL Creatinine (0.66-1.25) mg/dL Estimated GFR ML/MIN Glucose (74-106) mg/dL Calcium (8.4-10.2) mg/dL Total Bilirubin (0.2-1.3) mg/dL AST (17-59) U/L ALT (0-50) U/L Alkaline Phosphatase (38-126) U/L Troponin I < 0.012 < 0.012 < 0.012 (0.000-0.033) ng/mL Serum Total Protein (6.3-8.2) g/dL Albumin (3.5-5.0) g/dL Urine Color (Yellow) Urine Appearance (Clear) Urine pH (4.6-8.0) Ur Specific Driscoll (1.005-1.030) Urine Protein (Negative) Urine Glucose (UA) (Negative) mg/dL Urine Ketones (Negative) Urine Blood (Negative) Urine Nitrite (Negative) Urine Bilirubin (Negative) Urine Urobilinogen (0.2) mg/dL Ur Leukocyte Esterase (Negative) U Hyaline Cast (Auto) (0-2) /LPF Urine Microscopic RBC (0-5) /HPF Urine Microscopic WBC (0-5) /HPF Ur Epithelial Cells (None Seen) /HPF Urine Bacteria (None Seen) /HPF Urine Culture Reflexed (NO) 12/11/24 12/11/24 Range/Units 06:25 06:25 WBC 7.8 (4.23-9.07) x10^3/uL RBC 3.54 L (4.63-6.08) x10^6/uL Hgb 11.7 L (13.7-17.5) g/dL Hct 34.5 L (40.1-51.0) % MCV 97.5 H (79.0-92.2) fL MCH 33.1 H (25.7-32.2) pg MCHC 33.9 (32.3-36.5) g/dL RDW 13.3 (11.6-14.4) % Plt Count 217 (163-337) x10^3/uL MPV 9.4 (9.4-12.4) fL Gran % 44.8 (34.0-67.9) % Immature Gran % (Auto) 0.9 H (0.001-0.429) % Nucleat RBC Rel Count 0.0 (0.00-0.2) % Eos # (Auto) 0.15 (0.04-0.54) x10^3/uL Immature Gran # (Auto) 0.07 H (0.001-0.031) x10^3u/L Absolute Lymphs (auto) 3.28 (1.32-3.57) x10^3/uL Absolute Monos (auto) 0.77 (0.30-0.82) x10^3/uL Absolute Nucleated RBC 0.00 (0.00-0.012) x10^3u/L Lymphocytes % 41.8 (21.8-53.1) % Monocytes % 9.8 (5.3-12.2) % Eosinophils % 1.9 (0.8-7.0) % Basophils % 0.8 (0.2-1.2) % Absolute Granulocytes 3.51 (1.78-5.38) x10^3/uL Basophils # 0.06 (0.01-0.08) x10^3/uL Sodium 137 (135-145) mmol/L Potassium 4.0 (3.5-5.1) mmol/L Chloride 107 (98-107) mmol/L Carbon Dioxide 23 (22-30) mmol/L Anion Gap 11.9 (5-15) MEQ/L BUN 10 (9-20) mg/dL Creatinine 1.42 H (0.66-1.25) mg/dL Estimated GFR 61.0 ML/MIN Glucose 88 (74-106) mg/dL Calcium 8.1 L (8.4-10.2) mg/dL Total Bilirubin < 0.10 L (0.2-1.3) mg/dL AST 49 (17-59) U/L ALT 53 H (0-50) U/L Alkaline Phosphatase 44 (38-126) U/L Troponin I (0.000-0.033) ng/mL Serum Total Protein 6.2 L (6.3-8.2) g/dL Albumin 3.7 (3.5-5.0) g/dL Urine Color (Yellow) Urine Appearance (Clear) Urine pH (4.6-8.0) Ur Specific Driscoll (1.005-1.030) Urine Protein (Negative) Urine Glucose (UA) (Negative) mg/dL Urine Ketones (Negative) Urine Blood (Negative) Urine Nitrite (Negative) Urine Bilirubin (Negative) Urine Urobilinogen (0.2) mg/dL Ur Leukocyte Esterase (Negative) U Hyaline Cast (Auto) (0-2) /LPF Urine Microscopic RBC (0-5) /HPF Urine Microscopic WBC (0-5) /HPF Ur Epithelial Cells (None Seen) /HPF Urine Bacteria (None Seen) /HPF Urine Culture Reflexed (NO) - Radiology Impressions Radiology Exams & Impressions: Radiology Procedures Category Date Time Status ECHO W/2D AND DOPPLER [US] Routine Exams 12/11/24 07:14 Ordered HEAD WITHOUT CONTRAST [CT] Stat Exams 12/10/24 22:46 Completed Telemedicine Encounter - Telemedicine Encounter Telemedicine Encounter: "The entirety of this encounter was performed via Telemedicine" This visit was performed using real-time audio and video connection between my location and thepatients locationwith the assistance of a surrogateat the patients location. Written or verbal consent was obtained from the patient/guardian to perform this visit using[email or web address] technology. Any patient questions regarding the telemedicine interaction were answered.
[2024-12-11] MEDS ORDERED: MEDICATION INTERVENTION MC SCH (07:30)
[2024-12-11] MEDS: Protonix 40MG Tablet PO SCH (07:55)
[2024-12-11 09:25] LABS: Cholesterol 187.0 mg/dL (50-200); LDL, DIRECT 73.0 mg/dL (30-100); TRIGLYCERIDE 320.0 mg/dL (30-150)
[2024-12-11] MEDS ORDERED: Protonix 20MG Tablet PO SCH (10:00)
[2024-12-11] MEDS: Zofran 4 MG/2 ML VIAL IV PRN (10:15)
[2024-12-11] MEDS: TYLENOL 325 MG PO PRN (10:16)
--- NOTE | 2024-12-11 12:41 | XRAY ---
Indication: Pain, nausea, and vomiting. Multiple contiguous axial images obtained through the abdomen and pelvis without contrast. Comparison: None Lung bases clear with incidental tiny left base calcified granuloma. Additional small left infrahilar and tiny distal paraesophageal calcified nodes. Heart not enlarged. Noncontrasted stomach and bowel loops appear nonobstructed. Incidental diffuse fatty liver and tiny appendicoliths. No free fluid/air. Remaining liver, gallbladder, pancreas, spleen, adrenal glands, kidneys, ureters, bladder, and aorta are unremarkable for noncontrast exam. Osseous structures intact with minimal/mild degenerative changes throughout thoracolumbar spine. Impression: Chronic findings including fatty liver, tiny appendicoliths, degenerative spondylosis, and old granulomatous disease. Remaining CT abdomen/pelvis without contrast is negative.
[2024-12-11] MEDS: NORCO 5/325 MG PO PRN (15:55)
--- NOTE | 2024-12-11 16:31 | XRAY ---
Indication: Pain, nausea, and vomiting. Two-dimensional right upper quadrant abdominal sonogram performed. Comparison: None. Pancreas not well seen due to overlying bowel gas. Visualized is fatty in echogenicity and borderline enlarged measuring 19.3 cm. No focal solid/cystic hepatic mass or ascites. Visualized gallbladder and right kidney are sonographically unremarkable. Common bile duct measures 3.4 mm. No intrahepatic biliary distention. Right kidney measures 10.9 x 5.9 x 5.1 cm. Impression: Nonvisualization gallbladder. Fatty borderline hepatomegaly. Remaining right upper quadrant sonogram is negative.
--- NOTE | 2024-12-11 16:55 | XRAY ---
Indication: Near syncope. Normal CT head. Sagittal, coronal, and axial MRI brain performed using pre and post T1, T2, FLAIR, diffusion, and ADC sequences. 20 cc Dotarem contrast used. Comparison: None Age-appropriate global atrophy with a few periventricular degenerative microischemia signal bilaterally. No acute intracranial hemorrhage, abnormal extra-axial fluid collection, or mass effect. Diffusion images negative for restricted signal. Following gadolinium, there is no abnormal intra or extra-axial enhancement. 4th ventricle is midline without hydrocephalus. 7/8 cranial nerve complex bilaterally symmetric. Normal flow void signal within the major intracerebral circulation. Normal appearing craniocervical junction and sella turcica. Paranasal sinuses are clear. Impression: Atrophy and degenerative microischemia within normal limits. Remaining MRI brain with contrast exam is negative.
[2024-12-11] MEDS: Benicar 20 MG PO SCH (21:03)
[2024-12-11] MEDS ORDERED: OLMESARTAN MEDOXOMIL 5 MG PO SCH (22:00)
[2024-12-11] MEDS: xanAX 0.5 MG PO PRN (22:18)
[2024-12-12] MEDS ORDERED: VENTOLIN COMMON CANISTER IH PRN (04:39)
[2024-12-12] MEDS: VENTOLIN COMMON CANISTER IH PRN (04:41)
[2024-12-12 05:24] LABS: BASOPHIL % 0.8 % (0.2-1.2); Basophil (Absolute #) 0.07 x10^3/uL (0.01-0.08); Eosinophil (Absolute #) 0.17 x10^3/uL (0.04-0.54); Hematocrit 35.7 % (40.1-51.0); Hemoglobin 11.6 g/dL (13.7-17.5); IMMATURE GRAN # 0.05 x10^3u/L (0.001-0.031); IMMATURE GRAN % 0.6 % (0.001-0.429); Lymphocyte (Absolute #) 2.71 x10^3/uL (1.32-3.57); Mean Corpuscular Hemoglobin 32.4 pg (25.7-32.2); Mean Corpuscular Hgb Concent. 32.5 g/dL (32.3-36.5); Monocyte (Absolute #) 0.72 x10^3/uL (0.30-0.82); NUCLEATED RBC # 0.00 x10^3u/L (0.00-0.012); NUCLEATED RBC % 0.0 % (0.00-0.2); Platelet Count 230 x10^3/uL (163-337); Red Blood Count 3.58 x10^6/uL (4.63-6.08); White Blood Count 8.6 x10^3/uL (4.23-9.07)
[2024-12-12 05:40] LABS: Calcium 7.8 mg/dL (8.4-10.2); Carbon Dioxide 25.0 mmol/L (22-30); Creatinine 1 1.33 mg/dL (0.66-1.25); EST GLOMERULAR FILTRATION RATE 65.9 ML/MIN; Glucose 105.0 mg/dL (74-106); Potassium 3.8 mmol/L (3.5-5.1); SGOT/AST 48.0 U/L (17-59); SGPT/ALT 57.0 U/L (0-50); Total Protein 6.5 g/dL (6.3-8.2)
[2024-12-12 07:28] VITALS: O2SAT 98
[2024-12-12 08:30] VITALS: BP 171/83; PULSE 58; RESP 19; TEMP 97
[2024-12-12] MEDS: Tums EX 750 MG PO SCH (08:33)
--- NOTE | 2024-12-12 09:12 | PCM.DS ---
Discharge Summary Date of Admission: 12/11/24 01:40 Date of Discharge: 12/12/24 Admitting Physician: OZ QUIÑONES MD Primary Care Provider: ANASTACIO CLAYTON Allergies Allergies cefaclor [From Ceclor] Allergy (Verified 12/11/24 01:57) Rash Penicillins Allergy (Verified 12/11/24 01:57) Rash Hospital Summary - Hospital Course Hospital Course: Mr. Degroot is a 49-year-old male with a history of hypertension, GERD, asthma, anxiety, and depression was admitted on 12/11/2024 with nausea, vomiting, dizziness on standing, and intermittent blurred vision. Symptoms had persisted for two days prior to presentation and began shortly after initiation of Benicar (olmesartan) for blood pressure control. In the emergency department, he was hypotensive with systolic blood pressures in the 80s, though other vitals were stable. Neurology was consulted, and a near-syncope workup was initiated. Laboratory studies showed macrocytic anemia (Hgb 11.7), creatinine 1.42 (baseline1.3), triglycerides 320 , A1c 5.0%, and TSH within normal limits. MRI brain (12/11/24) demonstrated mild cerebral atrophy and chronic microvascular ischemic changes, with no acute infarct or hemorrhage. CT abdomen/pelvis showed fatty liver, tiny appendicolith, degenerative spondylolysis, and old granulomatous disease, without acute pathology. Right upper quadrant ultrasound revealed borderline hepatomegaly with fatty infiltration and non-visualization of the gallbladder. CT head was negative for acute process. During hospitalization, antihypertensive therapy was decreased to 2.5mg with subsequent normalization of blood pressure. Nausea improved with antiemetic therapy, though mild symptoms persisted. He remained hemodynamically stable without recurrent dizziness or orthostatic hypotension. An echocardiogram was pending at discharge. He is scheduled for outpatient EGD and colonoscopy on 12/12/2024 for evaluation of chronic nausea and prior anemia. Pt noted with hyper triglyceridemia- will start on atorvastatin 20mg daily and advised diet and lifestyle changes. Patient to follow up with PCP in 3-5 days for recheck of kidney function, anemia, and lipid monitoring. Patient will be sent home on holter monitor x 2 weeks with cardiology follow up. Discharge Note New Diagnosis: Dizziness New Medications: Benicar dosing at 2.5mg/atorvastatin 20mg daily/calcium carbonate 750mg BID x 3 days/ zofran 4mg odt q6h prn Follow Up: PCP/cardiology Results pending: Echo/holter monitor I spent 35 minutes [id number] with the patient on the day of discharge performing discharge exam, discussing hospital stay and discharge instructions with patient and caregivers, preparation of discharge records, prescriptions & referral forms and addressing any questions/concerns the patient had as documented above. - Vitals & Intake/Output Vital Signs: Vital Signs Temperature 97 F 12/12/24 08:00 Pulse Rate 58 L 12/12/24 08:00 Respiratory Rate 19 12/12/24 08:00 Blood Pressure 171/83 12/12/24 08:00 O2 Sat by Pulse Oximetry 98 12/12/24 08:00 Intake & Output: Intake & Output 12/09/24 12/10/24 12/11/24 12/12/24 11:59 11:59 11:59 11:59 Intake Total 380 2696 Balance 380 2696 Weight 124.3 kg - Lab Result Diagrams: 12/12/24 04:19 12/12/24 04:19 Lab Results-Last 24 Hrs: Lab Results-Last 24 Hours 12/11/24 12/11/24 12/11/24 Range/Units 06:25 06:25 06:25 WBC (4.23-9.07) x10^3/uL RBC (4.63-6.08) x10^6/uL Hgb (13.7-17.5) g/dL Hct (40.1-51.0) % MCV (79.0-92.2) fL MCH (25.7-32.2) pg MCHC (32.3-36.5) g/dL RDW (11.6-14.4) % Plt Count (163-337) x10^3/uL MPV (9.4-12.4) fL Gran % (34.0-67.9) % Immature Gran % (Auto) (0.001-0.429) % Nucleat RBC Rel Count (0.00-0.2) % Eos # (Auto) (0.04-0.54) x10^3/uL Immature Gran # (Auto) (0.001-0.031) x10^3u/L Absolute Lymphs (auto) (1.32-3.57) x10^3/uL Absolute Monos (auto) (0.30-0.82) x10^3/uL Absolute Nucleated RBC (0.00-0.012) x10^3u/L Lymphocytes % (21.8-53.1) % Monocytes % (5.3-12.2) % Eosinophils % (0.8-7.0) % Basophils % (0.2-1.2) % Absolute Granulocytes (1.78-5.38) x10^3/uL Basophils # (0.01-0.08) x10^3/uL Sodium (135-145) mmol/L Potassium (3.5-5.1) mmol/L Chloride (98-107) mmol/L Carbon Dioxide (22-30) mmol/L Anion Gap (5-15) MEQ/L BUN (9-20) mg/dL Creatinine (0.66-1.25) mg/dL Estimated GFR ML/MIN Glucose (74-106) mg/dL Hemoglobin A1c 5.02 (4.5-6.0) % Calcium (8.4-10.2) mg/dL Total Bilirubin (0.2-1.3) mg/dL AST (17-59) U/L ALT (0-50) U/L Alkaline Phosphatase (38-126) U/L Serum Total Protein (6.3-8.2) g/dL Albumin (3.5-5.0) g/dL Triglycerides 320 H (30-150) mg/dL Cholesterol 187 (50-200) mg/dL LDL Cholesterol 73 (30-100) mg/dL HDL Cholesterol 50 (40-60) mg/dL Heart Disease Risk Ratio 4.0 TSH 3rd Generation 1.661 (0.470-4.680) mIU/L 12/12/24 12/12/24 Range/Units 04:19 04:19 WBC 8.6 (4.23-9.07) x10^3/uL RBC 3.58 L (4.63-6.08) x10^6/uL Hgb 11.6 L (13.7-17.5) g/dL Hct 35.7 L (40.1-51.0) % MCV 99.7 H (79.0-92.2) fL MCH 32.4 H (25.7-32.2) pg MCHC 32.5 (32.3-36.5) g/dL RDW 13.3 (11.6-14.4) % Plt Count 230 (163-337) x10^3/uL MPV 9.7 (9.4-12.4) fL Gran % 56.7 (34.0-67.9) % Immature Gran % (Auto) 0.6 H (0.001-0.429) % Nucleat RBC Rel Count 0.0 (0.00-0.2) % Eos # (Auto) 0.17 (0.04-0.54) x10^3/uL Immature Gran # (Auto) 0.05 H (0.001-0.031) x10^3u/L Absolute Lymphs (auto) 2.71 (1.32-3.57) x10^3/uL Absolute Monos (auto) 0.72 (0.30-0.82) x10^3/uL Absolute Nucleated RBC 0.00 (0.00-0.012) x10^3u/L Lymphocytes % 31.5 (21.8-53.1) % Monocytes % 8.4 (5.3-12.2) % Eosinophils % 2.0 (0.8-7.0) % Basophils % 0.8 (0.2-1.2) % Absolute Granulocytes 4.89 (1.78-5.38) x10^3/uL Basophils # 0.07 (0.01-0.08) x10^3/uL Sodium 137 (135-145) mmol/L Potassium 3.8 (3.5-5.1) mmol/L Chloride 106 (98-107) mmol/L Carbon Dioxide 25 (22-30) mmol/L Anion Gap 10.2 (5-15) MEQ/L BUN 9 (9-20) mg/dL Creatinine 1.33 H (0.66-1.25) mg/dL Estimated GFR 65.9 ML/MIN Glucose 105 (74-106) mg/dL Hemoglobin A1c (4.5-6.0) % Calcium 7.8 L (8.4-10.2) mg/dL Total Bilirubin 0.20 (0.2-1.3) mg/dL AST 48 (17-59) U/L ALT 57 H (0-50) U/L Alkaline Phosphatase 47 (38-126) U/L Serum Total Protein 6.5 (6.3-8.2) g/dL Albumin 3.9 (3.5-5.0) g/dL Triglycerides (30-150) mg/dL Cholesterol (50-200) mg/dL LDL Cholesterol (30-100) mg/dL HDL Cholesterol (40-60) mg/dL Heart Disease Risk Ratio TSH 3rd Generation (0.470-4.680) mIU/L - Radiology Exams Ordered Rad Exams-Entire Visit: Radiology Procedures Category Date Time Status ABDOMEN AND PELVIS W/0 CONTRAS [CT] Urgent Exams 12/11/24 11:09 Completed ECHO W/2D AND DOPPLER [US] Routine Exams 12/11/24 07:14 Taken HEAD WITHOUT CONTRAST [CT] Stat Exams 12/10/24 22:46 Completed MRI BRAIN W & W/O CONTRAST [MRI] Routine Exams 12/11/24 08:09 Completed US ABDOMEN LIMITED [ABDOMINAL-LIMITED] [US] Routine Exams 12/11/24 11:09 Completed - Procedures and Test Procedures and Tests throughout Hospitalization: Therapy Orders & Screens 12/11/24 02:22 Smoking Cessation Education ONCE Comment: Diagnosis: Near syncope blurred vision nausea Smoking Status: Current every day smoker Do you dip or chew tobacco: No 12/12/24 04:39 Respiratory Therapy Assessment DAILY Comment: Diagnosis: Near syncope blurred vision nausea Discharge Exam General Appearance: no apparent distress Neurologic Exam: alert, oriented x 3, cooperative Eye Exam: PERRL Ears, Nose, Throat Exam: normal ENT inspection Neck Exam: normal inspection Respiratory Exam: normal breath sounds, lungs clear Cardiovascular Exam: regular rate/rhythm, normal heart sounds Gastrointestinal/Abdomen Exam: soft, normal bowel sounds Male Genitalia Exam: deferred Rectal Exam: deferred Back Exam: normal inspection Extremity Exam: normal inspection Skin Exam: normal color Final Diagnosis/Problem List - Final Discharge Diagnosis/Problem (1) Near syncope Current Visit: Yes Status: Acute Assessment & Plan: -Most likely secondary to hypotension -Benicar resumed at half dosing -BP improved after holding antihypertensives and giving supportive fluids; systolic BP now stable off meds. -Orthostasis resolved; no recurrent dizziness. -Discharged with a 14-day Holter monitor to evaluate for arrhythmia as a cardiac cause of presyncope -Patient to keep BP log -Cardiology follow-up arranged after Holter completion for rhythm review and long-term BP regimen. -Instructions: hydrate, change position slowly, check home BPs twice daily, and do not restart ARB until cleared. (2) Nausea & vomiting Current Visit: Yes Status: Acute Assessment & Plan: -Ongoing episodic nausea predating admission; brief vomiting prior to arrival. -Abdomen benign on exam; CT abdomen/pelvis without acute surgical findings. RUQ ultrasound with fatty liver but no acute biliary process. -Continue ondansetron PRN. -Keep small/frequent bland meals and maintain hydration to protect renal perfusion. -Outpatient GI workup proceeding with EGD/colonoscopy (scheduled 12/12/24). -Return precautions given for recurrent emesis, hematemesis, melena, or inability to keep fluids down. Code(s): R11.2 - NAUSEA WITH VOMITING, UNSPECIFIED (3) Macrocytic anemia Current Visit: Yes Status: Acute Assessment & Plan: No evidence of active bleeding on CT abdomen/pelvis or during stay. Pattern is chronic/indolent; differential includes nutritional (B12/folate) vs chronic disease vs alcohol-related marrow effect vs anemia of chronic inflammation. PCP to repeat CBC and obtain B12 and folate levels if not already drawn. GI evaluation with EGD/colonoscopy to assess for occult GI blood loss and mucosal disease. Code(s): D53.9 - NUTRITIONAL ANEMIA, UNSPECIFIED (4) Fatty liver Current Visit: Yes Status: Acute Assessment & Plan: Seen on CT and RUQ ultrasound; no acute hepatitis pattern reported. Consistent with metabolic-associated steatotic liver disease. Advised lifestyle modification (gradual weight loss, triglyceride control, limit alcohol). PCP to trend LFTs and consider hepatology referral if persistent elevation or signs of fibrosis. Code(s): K76.0 - FATTY (CHANGE OF) LIVER, NOT ELSEWHERE CLASSIFIED (5) Anxiety and depression Current Visit: Yes Status: Acute Assessment & Plan: Continue chronic psychiatric medications Code(s): F41.9 - ANXIETY DISORDER, UNSPECIFIED; F32.A - DEPRESSION, UNSPECIFIED (6) Asthma Current Visit: Yes Status: Acute Assessment & Plan: No in-hospital exacerbation. Code(s): J45.909 - UNSPECIFIED ASTHMA, UNCOMPLICATED (7) GERD (gastroesophageal reflux disease) Current Visit: Yes Status: Acute Assessment & Plan: Continue home PPI. Avoid late meals, caffeine trigger foods, and NSAIDs Code(s): K21.9 - GASTRO-ESOPHAGEAL REFLUX DISEASE WITHOUT ESOPHAGITIS (8) Acute renal injury Current Visit: Yes Status: Acute Assessment & Plan: Creatinine on admission 1.42 (baseline 1.3 ); mild bump felt to be hemodynamic (hypotension + ARB) rather than intrinsic renal injury. No obstructive process on CT abdomen/pelvis and no abdominal pathology requiring intervention. Renal function stabilized with volume repletion and medication adjustment. Advised to continue oral hydration, avoid NSAIDs, repeat BMP with PCP within 35 days PCP to monitor for progression of chronic kidney disease given borderline baseline creatinine. Code(s): N17.9 - ACUTE KIDNEY FAILURE, UNSPECIFIED (9) Headache Current Visit: Yes Status: Acute Assessment & Plan: CT head and MRI brain both negative for acute intracranial abnormality; mild chronic microvascular ischemic changes only. Treated conservatively with acetaminophen PRN. Continue adequate hydration, rest, and follow-up if headache worsens or develops new neurologic symptoms. 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 Avoid hepatotoxins; monitor lipids and LFTs in 68 weeks. If TG >500 mg/dL on recheck, consider fenofibrate or icosapent ethyl addition. Code(s): E78.1 - PURE HYPERGLYCERIDEMIA - Discharge Discharge Date: 12/12/24 Disposition: Home, Self-Care Condition: Stable Prescriptions: New Atorvastatin Calcium [Lipitor] 20 mg PO DAILY 30 Days #30 tablet Calcium Carbonate 750 mg [Tums EX 750 MG] 750 mg PO BID 3 Days #6 tablet Ondansetron ODT 4 MG [Zofran Odt 4 mg] 4 mg PO Q6H PRN PRN 30 Days #10 tablet PRN Reason: Nausea Continue Sildenafil Citrate 25 mg PO DAILY PRN PRN Reason: Anxiety Pantoprazole 20 mg [Protonix 20MG Tablet] 40 mg PO DAILY Desvenlafaxine Succinate [Desvenlafaxine Succinate ER] 100 mg PO QHS ALPRAZolam 0.25 MG [xanAX 0.25 MG] 0.5 mg PO BIDPRN PRN PRN Reason: Anxiety Trazodone HCl 50 mg [Desyrel 50 mg] 150 mg PO QHS Changed Olmesartan Medoxomil 2.5 mg PO QHS 30 Days #15 tablet Follow up with: ANASTACIO CLAYTON PA [Primary Care Provider, UNKNOWN] - 12/24/24 1:00 pm
[2024-12-12] MEDS ORDERED: ZOCOR 20MG PO SCH (22:00)
[2024-12-12] MEDS ORDERED: DESVENLAFAXINE SUCCINATE 100 MG PO SCH (22:00)
== END 2024-12-12 11:00 | disposition home or self-care (01) ==
LOC: ED 21:49 → ICU 12-11 01:40
PROVIDERS: ADMIT Internal Medicine; ATTEND Internal Medicine
DX: R55 Syncope and collapse (principal); R11.2 Nausea with vomiting, unspecified; D53.9 Nutritional anemia, unspecified; K76.0 Fatty (change of) liver, not elsewhere classified; F41.9 Anxiety disorder, unspecified; F32.A Depression, unspecified; J45.909 Unspecified asthma, uncomplicated; K21.9 Gastro-esophageal reflux disease without esophagitis; N17.9 Acute kidney failure, unspecified; R51.9 Headache, unspecified; E78.1 Pure hyperglyceridemia; F17.200 Nicotine dependence, unspecified, uncomplicated; Z79.899 Other long term (current) drug therapy